=== PATIENT | female | born 1960 | race African-American/Black ===

== ENCOUNTER 2017-06-24 17:39 | Emergency (ER) | payer MEDICARE, OTHER ==
[~2017-06-24] VITALS: Ht 165.1 cm; Wt 88.5 kg
--- NOTE | 2017-06-24 17:40 | NUR ---
AAOX3, CAME TO ER C/O SUICIDAL THOUGHTS PLAN IS TO POISON HERSELF OR RUN INTO TRAFFIC. RESP IS EVEN AND UNLABORED WITH NAD NOTED. SKIN IS WARM AND DRY. SI PRECAUTION IN PLACE. ZEKE GREENE AT BS FOR EVAL.
[2017-06-24 17:59] LABS: BASOPHILS # (AUTO) 0.1 /CMM (0.0-0.2); BASOPHILS % (AUTO) 1.6 % (0.0-2.0); EOSINOPHILS # (AUTO) 0.1 /CMM (0.0-0.7); EOSINOPHILS % (AUTO) 1.8 % (0.0-6.0); HEMATOCRIT 42 % (33-45); HEMOGLOBIN 13.1 g/dL (11.5-14.8); LYMPHOCYTES # (AUTO) 2.1 /CMM (0.8-4.8); LYMPHOCYTES % (AUTO) 48.5 % (20.0-44.0); MEAN CORPUSCULAR HEMOGLOBIN 29 PG (26.0-33.0); MEAN CORPUSCULAR HGB CONC 32 g/dl (31.0-36.0); MEAN CORPUSCULAR VOLUME 91 fL (82-100); MONOCYTES # (AUTO) 0.2 /CMM (0.1-1.30); MONOCYTES % (AUTO) 3.9 % (2.0-12.0); NEUTROPHILS % (AUTO) 44.2 % (43.0-81.0); PLATELET COUNT (AUTO) 196 /CMM (150-450); RDW COEFFICIENT OF VARIATION 14.1 (11.5-15.0); RED BLOOD CELL COUNT(AUTO) 4.57 MIL/uL (4.0-5.2); WHITE BLOOD COUNT (AUTO) 4.5 K/uL (4.3-11.0)
[2017-06-24 18:09] LABS: CALCIUM, SERUM 9.3 mg/dL (8.5-10.1); CARBON DIOXIDE 30 mmol/L (21-32); CHLORIDE 102 mmol/L (98-107); CREATININE 1.6 mg/dL (0.6-1.3); GLUCOSE 142 mg/dL (74-106); POTASSIUM 3.7 mmol/L (3.5-5.1); SODIUM SERUM 139 mmol/L (136-145); UREA NITROGEN, BLOOD 22 mg/dL (7-18)
[2017-06-24 18:14] LABS: ALANINE AMINOTRANSFERASE 29 U/L (12-78); ALCOHOL, BLOOD < 3 mg/dL (0-0); ALKALINE PHOSPHATASE 67 U/L (46-116); ASPARTATE AMINOTRANSFERASE 22 U/L (15-37); BILIRUBIN,DIRECT 0.1 mg/dL (0.0-0.2); BILIRUBIN,TOTAL 0.2 mg/dL (0.2-1.0); TOTAL PROTEIN, SERUM 7.7 g/dL (6.4-8.2)
[2017-06-24 18:16] LABS: ACETAMINOPHEN < 2 ug/ml (10-30); SALICYLATE < 2.8 mg/dL (2.8-20.0)
--- NOTE | 2017-06-24 18:17 | NUR ---
URINE SAMPLE COLLECTED SENT TO LAB
[2017-06-24 18:22] LABS: APPEARANCE,URINE Clear (CLEAR); BILIRUBIN,URINE Negative (NEGATIVE); BLOOD, URINE Negative Ery/uL (NEGATIVE); COLOR,URINE Yellow (YELLOW); KETONES,URINE Trace (NEGATIVE); LEUKOCYTE ESTERASE ,URINE Small (NEGATIVE); NITRITE, URINE Negative (NEGATIVE); PH,URINE 5.5 (5.0-8.0); PROTEIN,URINE Negative (NEGATIVE); UGLUCOSE Negative (NEGATIVE); UROBILINOGEN,URINE 0.2 EU/dL (0.2)
[2017-06-24 18:33] LABS: BACTERIA,URINE None seen /HPF (None Seen); RBC,URINE 0-2 /HPF (0-2); SQUAMOUS EPITHELIAL CELL,UR Few /HPF (None Seen)
--- NOTE | 2017-06-24 19:30 | NUR ---
RECEIVED REPORT FROM CHIQUIS GRAHAM FOR [facility].
--- NOTE | 2017-06-24 19:30 | NUR ---
PT PLACED ON 5150 HOLD PER PINKY
--- NOTE | 2017-06-24 19:52 | NUR ---
PINKY AT BEDSIDE FOR EVAL.
--- NOTE | 2017-06-24 22:14 | NUR ---
CALLED [facility] FOR S TRANSPORT TO [facility]
--- NOTE | 2017-06-24 22:14 | NUR ---
ETA 1 HOUR
--- NOTE | 2017-06-24 22:59 | NUR ---
REPORT GIVEN TO CHIQUIS SUERO FROM [facility]
[2017-06-24 23:15] VITALS: BP 120/80
--- NOTE | 2017-06-24 23:19 | NUR ---
REPORT GIVEN TO MED RESPONSE FOR [facility]. PT AO4 AWARE TO TRANSFER. PT VSS. PT WITH ALL PERSONAL BELONGINGS. PT TRANSFERED TO [facility] VIA [facility]. PER MED RESPONSE TOOK OVER CARE.
== END 2017-06-24 23:22 ==
LOC: ER 17:46
DX: R45.851 Suicidal ideations (principal); R79.89 Other specified abnormal findings of blood chemistry; F20.9 Schizophrenia, unspecified; Z98.890 Other specified postprocedural states
CPT/HCPCS: 36415; 80048; 80076; 80305; 80329; 81001; 85025; 99285; A4606; G0480 ×2; 81000-TC; Z7610

== ENCOUNTER 2024-05-10 22:43 | Inpatient (IN) | payer OTHER ==
[~2024-05-10] VITALS: Ht 165.1 cm; Wt 86.2 kg
[2024-05-10] MEDS ORDERED: HALOPERIDOL LACTATE INJ 5 MG/ML VIAL ONE (23:21)
[2024-05-10] MEDS ORDERED: LORAZEPAM INJ 2 MG/ML VIAL ONE (23:21)
[2024-05-10] MEDS: LORAZEPAM INJ 2 MG/ML VIAL IM ONE (23:24)
[2024-05-10] MEDS: HALOPERIDOL LACTATE INJ 5 MG/ML VIAL IM ONE (23:24)
[2024-05-11 00:16] LABS: BASOPHILS % (AUTO) 0.3 % (0.0-2.0); HEMATOCRIT 43 % (33-45); HEMOGLOBIN 13.4 g/dL (11.5-14.8); LYMPHOCYTES # (AUTO) 1.2 K/uL (0.8-4.8); LYMPHOCYTES % (AUTO) 15.6 % (20.0-44.0); MEAN CORPUSCULAR HEMOGLOBIN 31 PG (26.0-33.0); MEAN CORPUSCULAR HGB CONC 31 g/dl (31.0-36.0); MEAN CORPUSCULAR VOLUME 98 fL (82-100); MONOCYTES # (AUTO) 0.3 K/uL (0.1-1.30); MONOCYTES % (AUTO) 4.3 % (2.0-12.0); NEUTROPHILS % (AUTO) 79.8 % (43.0-81.0); PLATELET COUNT (AUTO) 169 K/uL (150-450); RED BLOOD CELL COUNT(AUTO) 4.37 MIL/uL (4.0-5.2); RED CELL DISTRIBUTION WIDTH 14.5 % (11.5-15.0); WHITE BLOOD COUNT (AUTO) 7.6 K/uL (4.3-11.0)
[2024-05-11] MEDS ORDERED: diphenhydrAMINE HCL 50 MG/ML VIAL ONE (00:36)
[2024-05-11 00:37] LABS: CALCIUM, SERUM 9.9 mg/dL (8.5-10.1); CARBON DIOXIDE 20 mmol/L (21-32); CHLORIDE 105 mmol/L (98-107); CREATININE 1.6 mg/dL (0.6-1.3); GLUCOSE 142 mg/dL (74-106); POTASSIUM 3.5 mmol/L (3.5-5.1); SODIUM SERUM 142 mmol/L (136-145); UREA NITROGEN, BLOOD 16 mg/dL (7-18)
[2024-05-11] MEDS ORDERED: LORAZEPAM INJ 2 MG/ML VIAL ONE (00:37)
[2024-05-11 00:41] LABS: ALANINE AMINOTRANSFERASE 21 U/L (12-78); ALBUMIN 3.4 g/dL (3.4-5.0); ALCOHOL, BLOOD < 3 mg/dL (0-10); ALKALINE PHOSPHATASE 81 U/L (46-116); ASPARTATE AMINOTRANSFERASE 16 U/L (15-37); BILIRUBIN,DIRECT 0.1 mg/dL (0.0-0.2); BILIRUBIN,TOTAL 0.3 mg/dL (0.2-1.0); SALICYLATE 4.5 mg/dL (2.8-20.0); TOTAL PROTEIN, SERUM 7.4 g/dL (6.4-8.2)
[2024-05-11] MEDS: LORAZEPAM INJ 2 MG/ML VIAL IM ONE (00:42)
[2024-05-11] MEDS: diphenhydrAMINE HCL 50 MG/ML VIAL IM ONE (00:42)
[2024-05-11 00:49] LABS: ACETAMINOPHEN <10 ug/ml (10-30)
[2024-05-11 02:30] LABS: APPEARANCE,URINE CLEAR (CLEAR); BILIRUBIN,URINE 1+ (NEGATIVE); BLOOD, URINE NEGATIVE Ery/uL (NEGATIVE); COLOR,URINE YELLOW (YELLOW); KETONES,URINE TRACE mg/dL (NEGATIVE); LEUKOCYTE ESTERASE ,URINE NEGATIVE (NEGATIVE); NITRITE, URINE NEGATIVE (NEGATIVE); PROTEIN,URINE 1+ mg/dl (NEGATIVE); UGLUCOSE NEGATIVE (NEGATIVE)
[2024-05-11 02:39] LABS: AMPHETAMINE, URINE NEGATIVE (NEGATIVE); BARBITURATE, URINE NEGATIVE (NEGATIVE); BENZODIAZEPINE, URINE NEGATIVE (NEGATIVE); CANNABINOID, URINE NEGATIVE (NEGATIVE); COCCAINE, URINE NEGATIVE (NEGATIVE); OPIATE, URINE NEGATIVE (NEGATIVE); PHENCYCLIDINE SCREEN,URINE NEGATIVE (NEGATIVE)
[2024-05-11] MEDS ORDERED: OLANZAPINE 10 MG VIAL IM ONE (22:11)
[2024-05-11] MEDS: OLANZAPINE 10 MG VIAL IM ONE (22:14)
[2024-05-12] MEDS ORDERED: ATOR20TA PO (15:09)
[2024-05-12] MEDS ORDERED: PANT40TA49 PO (15:09)
[2024-05-12] MEDS ORDERED: QUET200T PO (15:09)
[2024-05-12] MEDS ORDERED: LISI10TA29 PO (15:09)
[2024-05-12] MEDS ORDERED: ACETAMINOPHEN 325 MG TABLET PO PRN (17:00)
[2024-05-12] MEDS ORDERED: LORAZEPAM 0.5 MG TABLET PO PRN (17:00)
[2024-05-12] MEDS ORDERED: MAGNESIUM HYDROXIDE 30 ML UDC PO PRN (17:00)
[2024-05-12] MEDS ORDERED: MAG HYDROX/AL HYDROX/SIMETH 30 ML UDC PO PRN (17:00)
[2024-05-12] MEDS: BLOOD SUGAR DIAGNOSTIC 1 EACH STRIP IN ONE (17:29)
[2024-05-12 20:00] VITALS: BP 125/73; TEMP 98.2; O2SAT 97
[2024-05-12 20:57] VITALS: BP 125/73; TEMP 98.2; O2SAT 97
[2024-05-12] MEDS: ZOLPIDEM TARTRATE 5 MG TABLET PO PRN (21:33)
[2024-05-12] MEDS: ATORVASTATIN 10 MG TABLET PO SCH (21:34)
[2024-05-13 07:36] LABS: ALBUMIN 2.9 g/dL (3.4-5.0); BILIRUBIN,TOTAL 0.4 mg/dL (0.2-1.0); CALCIUM, SERUM 9.8 mg/dL (8.5-10.1); CREATININE 0.9 mg/dL (0.6-1.3); POTASSIUM 3.6 mmol/L (3.5-5.1); TOTAL PROTEIN, SERUM 6.6 g/dL (6.4-8.2)
[2024-05-13 08:00] VITALS: BP 113/55; TEMP 97.4; O2SAT 96
[2024-05-13] MEDS: PANTOPRAZOLE 40 MG TABLET.DR PO SCH (08:35)
[2024-05-13] MEDS: LISINOPRIL (10MG) 10 MG TABLET PO SCH (08:38)
[2024-05-13] MEDS: risperiDONE 1 MG TABLET PO SCH (11:35)
[2024-05-13] MEDS: BENZTROPINE MESYLATE (1 MG) 1 MG TABLET PO SCH (11:35)
[2024-05-13 16:00] VITALS: BP 111/74; TEMP 97.8; O2SAT 98
[2024-05-13 20:39] VITALS: BP 139/58; TEMP 98.2; O2SAT 99
[2024-05-14 08:00] VITALS: BP 114/72; TEMP 98.1; O2SAT 98
[2024-05-14] MEDS: risperiDONE 1 MG TABLET PO SCH (13:42)
[2024-05-14] MEDS: DIVALPROEX SODIUM 250 MG TABLET.DR PO SCH (15:25)
[2024-05-14 16:00] VITALS: BP 114/74; TEMP 98.7; O2SAT 98
[2024-05-14 20:00] VITALS: BP 119/62; TEMP 98.3; O2SAT 99
[2024-05-15 08:00] VITALS: BP 118/73; TEMP 97.9; O2SAT 98
[2024-05-15 16:00] VITALS: BP 101/60; TEMP 98; O2SAT 96
[2024-05-15] MEDS: risperiDONE 1 MG TABLET PO SCH ×2 (16:28→21:10)
[2024-05-15 20:00] VITALS: BP 105/49; TEMP 97.9; O2SAT 98
[2024-05-16 08:00] VITALS: BP 133/90; TEMP 97.8; O2SAT 96
[2024-05-16 16:00] VITALS: BP 120/76; TEMP 97.8; O2SAT 100
[2024-05-16 20:00] VITALS: BP 122/78; TEMP 98.2; O2SAT 99
[2024-05-17 08:00] VITALS: BP 100/70; TEMP 97.9; O2SAT 100
[2024-05-17 16:00] VITALS: BP 118/67; TEMP 97.9; O2SAT 96
[2024-05-17 20:00] VITALS: BP 125/84; TEMP 98.2; O2SAT 95
[2024-05-18 08:00] VITALS: BP 121/80; TEMP 97.7; O2SAT 100
[2024-05-18 16:00] VITALS: BP 116/72; TEMP 98.2; O2SAT 100
[2024-05-18 20:34] VITALS: BP 120/69; TEMP 98.1; O2SAT 99
[2024-05-19 08:00] VITALS: BP 100/60; TEMP 97.9; O2SAT 100
[2024-05-19 16:00] VITALS: BP 113/72; TEMP 97.9; O2SAT 100
[2024-05-19 20:00] VITALS: BP 109/69; TEMP 97.5; O2SAT 98
[2024-05-20 08:00] VITALS: BP 117/72; TEMP 98.1; O2SAT 99
[2024-05-20] MEDS ORDERED: PALIPERIDONE PALMITATE 156 MG/ML SYRINGE IM ONE ×2 (12:00→13:00)
[2024-05-20] MEDS: PALIPERIDONE PALMITATE 156 MG/ML SYRINGE IM ONE (13:52)
[2024-05-20 16:00] VITALS: BP 100/58; TEMP 97.9; O2SAT 97
[2024-05-20 20:37] VITALS: BP 98/61; TEMP 98.7; O2SAT 100
[2024-05-20] MEDS: risperiDONE 1 MG TABLET PO SCH (21:14)
[2024-05-21 08:00] VITALS: BP 111/72; TEMP 98.6; O2SAT 100
[2024-05-21 16:00] VITALS: BP 112/72; TEMP 97.9; O2SAT 97
[2024-05-21 16:17] LABS: BASOPHILS % (AUTO) 0.5 % (0.0-2.0); EOSINOPHILS # (AUTO) 0.1 K/uL (0.0-0.7); EOSINOPHILS % (AUTO) 1.4 % (0.0-6.0); HEMATOCRIT 36 % (33-45); HEMOGLOBIN 12.4 g/dL (11.5-14.8); LYMPHOCYTES # (AUTO) 2.9 K/uL (0.8-4.8); LYMPHOCYTES % (AUTO) 57.1 % (20.0-44.0); MEAN CORPUSCULAR HEMOGLOBIN 32 PG (26.0-33.0); MEAN CORPUSCULAR HGB CONC 34 g/dl (31.0-36.0); MEAN CORPUSCULAR VOLUME 93 fL (82-100); MONOCYTES # (AUTO) 0.4 K/uL (0.1-1.30); MONOCYTES % (AUTO) 7.3 % (2.0-12.0); NEUTROPHILS # (AUTO) 1.7 K/uL (1.8-8.9); NEUTROPHILS % (AUTO) 33.7 % (43.0-81.0); PLATELET COUNT (AUTO) 169 K/uL (150-450); RED BLOOD CELL COUNT(AUTO) 3.89 MIL/uL (4.0-5.2); RED CELL DISTRIBUTION WIDTH 14.5 % (11.5-15.0); WHITE BLOOD COUNT (AUTO) 5.1 K/uL (4.3-11.0)
[2024-05-21 16:45] LABS: BILIRUBIN,TOTAL 0.2 mg/dL (0.2-1.0); CALCIUM, SERUM 8.9 mg/dL (8.5-10.1); POTASSIUM 3.9 mmol/L (3.5-5.1); TOTAL PROTEIN, SERUM 6.8 g/dL (6.4-8.2)
[2024-05-21 20:34] VITALS: BP 98/60; TEMP 97.9; O2SAT 97
[2024-05-22 06:55] LABS: BASOPHILS % (AUTO) 0.6 % (0.0-2.0); EOSINOPHILS # (AUTO) 0.1 K/uL (0.0-0.7); EOSINOPHILS % (AUTO) 2.3 % (0.0-6.0); HEMATOCRIT 35 % (33-45); HEMOGLOBIN 11.8 g/dL (11.5-14.8); LYMPHOCYTES # (AUTO) 2.3 K/uL (0.8-4.8); LYMPHOCYTES % (AUTO) 60.6 % (20.0-44.0); MEAN CORPUSCULAR HEMOGLOBIN 31 PG (26.0-33.0); MEAN CORPUSCULAR HGB CONC 34 g/dl (31.0-36.0); MEAN CORPUSCULAR VOLUME 93 fL (82-100); MONOCYTES # (AUTO) 0.3 K/uL (0.1-1.30); MONOCYTES % (AUTO) 8.2 % (2.0-12.0); NEUTROPHILS # (AUTO) 1.1 K/uL (1.8-8.9); NEUTROPHILS % (AUTO) 28.3 % (43.0-81.0); PLATELET COUNT (AUTO) 177 K/uL (150-450); RED BLOOD CELL COUNT(AUTO) 3.76 MIL/uL (4.0-5.2); RED CELL DISTRIBUTION WIDTH 14.2 % (11.5-15.0); WHITE BLOOD COUNT (AUTO) 3.8 K/uL (4.3-11.0)
[2024-05-22 07:37] LABS: ALBUMIN 2.7 g/dL (3.4-5.0); BILIRUBIN,TOTAL 0.2 mg/dL (0.2-1.0); CALCIUM, SERUM 9.3 mg/dL (8.5-10.1); POTASSIUM 4.9 mmol/L (3.5-5.1); TOTAL PROTEIN, SERUM 6.1 g/dL (6.4-8.2)
[2024-05-22 08:00] VITALS: BP 105/73; TEMP 98.7; O2SAT 98
[2024-05-22 08:12] VITALS: BP 105/73
== END 2024-05-22 09:45 | DRG 885 ==
LOC: ER 22:51 → GPS 05-12 15:05
PROVIDERS: ADMIT Psychiatry & Neurology Psychosomatic Medicine; ATTEND Nurse Practitioner Acute Care
DX: F20.9 Schizophrenia, unspecified (principal); F29 Unspecified psychosis not due to a substance or known physiological condition; R73.03 Prediabetes; F14.91 Cocaine use, unspecified, in remission; Z91.199 Patient's noncompliance with other medical treatment and regimen due to unspecified reason; Z91.81 History of falling; E78.5 Hyperlipidemia, unspecified; Z98.890 Other specified postprocedural states; Z79.899 Other long term (current) drug therapy; Z73.6 Limitation of activities due to disability; R53.1 Weakness; R27.8 Other lack of coordination; F41.9 Anxiety disorder, unspecified; F32.A Depression, unspecified; I10 Essential (primary) hypertension; K21.9 Gastro-esophageal reflux disease without esophagitis; G31.84 Mild cognitive impairment of uncertain or unknown etiology
CPT/HCPCS: 36415; 80048-TC; 80053-TC; 80061-TC; 80076-TC; 80164-TC; 82962-TC; 85025-TC; 98960; G0480; J1200; J1630; J2060; J2426; J3490

== ENCOUNTER 2024-05-24 13:45 | Inpatient (IN) | payer OTHER ==
[~2024-05-24] VITALS: Ht 165.1 cm; Wt 82.6 kg
[~2024-05-24 13:45] MED LIST: ATOR20TA PO; LISI10TA29 PO; PANT40TA49 PO; QUET200T PO
[2024-05-24] MEDS: IV NS 0.9% 1,000 ML BAG IV ONE ×2 (14:20→16:00)
[2024-05-24 14:23] LABS: BASOPHILS % (AUTO) 0.5 % (0.0-2.0); HEMATOCRIT 36 % (33-45); HEMOGLOBIN 12.1 g/dL (11.5-14.8); LYMPHOCYTES # (AUTO) 1.7 K/uL (0.8-4.8); LYMPHOCYTES % (AUTO) 42.2 % (20.0-44.0); MEAN CORPUSCULAR HEMOGLOBIN 31 PG (26.0-33.0); MEAN CORPUSCULAR HGB CONC 33 g/dl (31.0-36.0); MEAN CORPUSCULAR VOLUME 93 fL (82-100); MONOCYTES # (AUTO) 0.3 K/uL (0.1-1.30); NEUTROPHILS # (AUTO) 1.9 K/uL (1.8-8.9); NEUTROPHILS % (AUTO) 48.3 % (43.0-81.0); PLATELET COUNT (AUTO) 177 K/uL (150-450); RED BLOOD CELL COUNT(AUTO) 3.88 MIL/uL (4.0-5.2); RED CELL DISTRIBUTION WIDTH 14.7 % (11.5-15.0)
[2024-05-24 14:35] LABS: INR 0.98 (0.91-1.10); PARTIAL THROMBOPLASTIN TIME 27.2 SEC (24.3-34.3); PROTHROMBIN TIME 10.4 SECS (9.2-11.1)
[2024-05-24 15:07] LABS: CALCIUM, SERUM 8.3 mg/dL (8.5-10.1); CARBON DIOXIDE 35 mmol/L (21-32); CHLORIDE 104 mmol/L (98-107); GLUCOSE 98 mg/dL (74-106); LACTIC ACID 1.7 mmol/L (0.4-2.0); POTASSIUM 3.7 mmol/L (3.5-5.1); SODIUM SERUM 140 mmol/L (136-145); UREA NITROGEN, BLOOD 10 mg/dL (7-18)
[2024-05-24 16:02] LABS: ACETAMINOPHEN 0 ug/ml (10-30); ALCOHOL, BLOOD < 3 mg/dL (0-10); SALICYLATE < 0.2 mg/dL (2.8-20.0)
[2024-05-24 16:29] LABS: ALANINE AMINOTRANSFERASE 14 U/L (12-78); ALKALINE PHOSPHATASE 66 U/L (46-116); ASPARTATE AMINOTRANSFERASE 11 U/L (15-37); BILIRUBIN,DIRECT 0.1 mg/dL (0.0-0.2); BILIRUBIN,TOTAL 0.2 mg/dL (0.2-1.0)
[2024-05-24 16:30] LABS: TOTAL PROTEIN, SERUM 6.6 g/dL (6.4-8.2)
[2024-05-24 17:59] LABS: APPEARANCE,URINE CLEAR (CLEAR); BILIRUBIN,URINE NEGATIVE (NEGATIVE); BLOOD, URINE NEGATIVE Ery/uL (NEGATIVE); COLOR,URINE YELLOW (YELLOW); KETONES,URINE NEGATIVE (NEGATIVE); LEUKOCYTE ESTERASE ,URINE NEGATIVE (NEGATIVE); NITRITE, URINE NEGATIVE (NEGATIVE); PROTEIN,URINE NEGATIVE (NEGATIVE); UGLUCOSE NEGATIVE (NEGATIVE); UROBILINOGEN,URINE 0.2 EU/dL (0.2)
[2024-05-24 18:28] LABS: AMPHETAMINE, URINE NEGATIVE (NEGATIVE); BARBITURATE, URINE NEGATIVE (NEGATIVE); BENZODIAZEPINE, URINE NEGATIVE (NEGATIVE); CANNABINOID, URINE NEGATIVE (NEGATIVE); COCCAINE, URINE NEGATIVE (NEGATIVE); OPIATE, URINE NEGATIVE (NEGATIVE); PHENCYCLIDINE SCREEN,URINE NEGATIVE (NEGATIVE)
[2024-05-24] MEDS ORDERED: RISP1TAB7 PO (18:48)
[2024-05-24] MEDS ORDERED: DIVA-76 PO (18:48)
[2024-05-24] MEDS ORDERED: BENZ1TAB7 PO (18:48)
[2024-05-24] MEDS ORDERED: MAGNESIUM HYDROXIDE 30 ML UDC PO PRN (20:00)
[2024-05-24] MEDS ORDERED: Z GUARD REMEDY 4 OZ OINT TP PRN (20:00)
[2024-05-24] MEDS ORDERED: ONDANSETRON HCL/PF 4 MG/2 ML VIAL IVP PRN (20:00)
[2024-05-24] MEDS ORDERED: MAG HYDROX/AL HYDROX/SIMETH 30 ML UDC PO PRN (20:00)
[2024-05-24] MEDS ORDERED: ACETAMINOPHEN 325 MG TABLET PO PRN (20:00)
[2024-05-24 22:09] VITALS: BP 87/60; TEMP 97.3; O2SAT 99
[2024-05-24] MEDS: IV NS 0.9% 1,000 ML IV SCH ×2 (22:44→23:28)
[2024-05-24] MEDS: IV NS 0.9% 500 ML IV ONE (23:34)
[2024-05-25] VITALS: BP 101/48; TEMP 97.7; O2SAT 97
[2024-05-25 04:00] VITALS: BP 105/71; TEMP 97.7; O2SAT 99
[2024-05-25 07:53] LABS: BASOPHILS % (AUTO) 0.8 % (0.0-2.0); EOSINOPHILS # (AUTO) 0.1 K/uL (0.0-0.7); HEMATOCRIT 35 % (33-45); HEMOGLOBIN 11.7 g/dL (11.5-14.8); LYMPHOCYTES # (AUTO) 2.2 K/uL (0.8-4.8); LYMPHOCYTES % (AUTO) 50.5 % (20.0-44.0); MEAN CORPUSCULAR HEMOGLOBIN 31 PG (26.0-33.0); MEAN CORPUSCULAR HGB CONC 33 g/dl (31.0-36.0); MEAN CORPUSCULAR VOLUME 95 fL (82-100); MONOCYTES # (AUTO) 0.3 K/uL (0.1-1.30); MONOCYTES % (AUTO) 7.1 % (2.0-12.0); NEUTROPHILS # (AUTO) 1.8 K/uL (1.8-8.9); NEUTROPHILS % (AUTO) 39.6 % (43.0-81.0); PLATELET COUNT (AUTO) 163 K/uL (150-450); RED BLOOD CELL COUNT(AUTO) 3.71 MIL/uL (4.0-5.2); RED CELL DISTRIBUTION WIDTH 14.4 % (11.5-15.0); WHITE BLOOD COUNT (AUTO) 4.4 K/uL (4.3-11.0)
[2024-05-25 07:59] LABS: CALCIUM, SERUM 7.7 mg/dL (8.5-10.1); CREATININE 0.8 mg/dL (0.6-1.3); PHOSPHORUS 3.4 mg/dL (2.5-4.9); POTASSIUM 3.7 mmol/L (3.5-5.1)
[2024-05-25 08:09] VITALS: BP 97/54; TEMP 98.6; O2SAT 97
[2024-05-25] MEDS: IV NS 0.9% 1,000 ML IV PRN (15:02)
[2024-05-25 15:55] VITALS: BP 117/72; TEMP 97.8; O2SAT 97
[2024-05-25 20:00] VITALS: BP 133/66; TEMP 98.2; O2SAT 99
[2024-05-26 08:10] VITALS: BP 148/83; TEMP 98.4; O2SAT 97
[2024-05-26 08:23] VITALS: BP 135/79; TEMP 97.9; O2SAT 98
[2024-05-26 16:01] VITALS: BP 122/67; TEMP 98.4; O2SAT 96
[2024-05-26 20:00] VITALS: BP 148/83; TEMP 98.4; O2SAT 97
[2024-05-27 08:00] VITALS: BP_SYST 124; BP_SYST 126; BP_DIAS 61; BP_DIAS 64; TEMP 97.7; TEMP 98.6; O2SAT 97
== END 2024-05-28 16:15 | DRG 93 ==
LOC: ER 13:51 → TELE 21:18 → MED 05-25 10:15
PROVIDERS: ATTEND Internal Medicine
DX: G92.8 Other toxic encephalopathy (principal); T43.505S Adverse effect of unspecified antipsychotics and neuroleptics, sequela; I95.9 Hypotension, unspecified; Z73.6 Limitation of activities due to disability; Z20.822 Contact with and (suspected) exposure to COVID-19; R73.03 Prediabetes; F25.0 Schizoaffective disorder, bipolar type; S00.03XA Contusion of scalp, initial encounter; X58.XXXA Exposure to other specified factors, initial encounter; Y93.9 Activity, unspecified; Y92.89 Other specified places as the place of occurrence of the external cause
CPT/HCPCS: 36415; 70450-TC; 71045-TC; 80048-TC; 80076-TC; 83605-TC; 83735-TC; 84100-TC; 84443-TC; 84484-TC; 85025-TC; 85730-TC; 87040-TC; 87081-TC; 87086-TC; 92526; 92611-TC; 97110-TC; 97112-TC; 97116-TC; 97530-TC; A4223; G0378; G0480; J7030; J7040

== ENCOUNTER 2024-05-28 15:50 | Inpatient (IN) | payer MEDICARE, OTHER ==
[~2024-05-28] VITALS: Ht 165.1 cm; Wt 82.6 kg
[~2024-05-28 15:50] MED LIST changes: -ATOR20TA PO; +BENZ1TAB7 PO; +DIVA-76 PO; -LISI10TA29 PO; -PANT40TA49 PO; -QUET200T PO; +RISP1TAB7 PO
[2024-05-28] MEDS ORDERED: ACETAMINOPHEN 325 MG TABLET PO PRN (18:30)
[2024-05-28] MEDS ORDERED: MAGNESIUM HYDROXIDE 30 ML UDC PO PRN (18:30)
[2024-05-28] MEDS ORDERED: MAG HYDROX/AL HYDROX/SIMETH 30 ML UDC PO PRN (18:30)
[2024-05-28] MEDS ORDERED: TEMAZEPAM 7.5 MG CAPSULE PO PRN (18:30)
[2024-05-28] MEDS: BLOOD SUGAR DIAGNOSTIC 1 EACH STRIP IN ONE (18:41)
[2024-05-28] MEDS ORDERED: risperiDONE 1 MG TABLET PO SCH (21:00)
[2024-05-28] MEDS: BENZTROPINE MESYLATE (1 MG) 1 MG TABLET PO SCH (21:00)
[2024-05-29 06:20] VITALS: BP 118/67; TEMP 98; O2SAT 98
[2024-05-29 08:00] VITALS: BP 119/62; TEMP 98.1; O2SAT 95
[2024-05-29] MEDS ORDERED: DIVALPROEX SODIUM 250 MG TABLET.DR PO SCH (09:00)
[2024-05-29] MEDS ORDERED: PALIPERIDONE PALMITATE 117 MG/0.75 ML SYRINGE IM ONE (11:30)
[2024-05-29] MEDS: DIVALPROEX SODIUM 500 MG TABLET.DR PO SCH (11:44)
[2024-05-29] MEDS ORDERED: INVEGA IM ONE (13:00)
[2024-05-29 15:16] LABS: BASOPHILS % (AUTO) 0.3 % (0.0-2.0); EOSINOPHILS # (AUTO) 0.1 K/uL (0.0-0.7); HEMATOCRIT 38 % (33-45); HEMOGLOBIN 12.6 g/dL (11.5-14.8); LYMPHOCYTES % (AUTO) 49.6 % (20.0-44.0); MEAN CORPUSCULAR HEMOGLOBIN 31 PG (26.0-33.0); MEAN CORPUSCULAR HGB CONC 33 g/dl (31.0-36.0); MEAN CORPUSCULAR VOLUME 93 fL (82-100); MONOCYTES # (AUTO) 0.4 K/uL (0.1-1.30); MONOCYTES % (AUTO) 6.8 % (2.0-12.0); NEUTROPHILS # (AUTO) 2.6 K/uL (1.8-8.9); NEUTROPHILS % (AUTO) 42.3 % (43.0-81.0); PLATELET COUNT (AUTO) 218 K/uL (150-450); RED BLOOD CELL COUNT(AUTO) 4.11 MIL/uL (4.0-5.2); RED CELL DISTRIBUTION WIDTH 14.6 % (11.5-15.0); WHITE BLOOD COUNT (AUTO) 6.1 K/uL (4.3-11.0)
[2024-05-29 15:34] LABS: CREATININE 1.1 mg/dL (0.6-1.3)
[2024-05-29 15:39] LABS: ALBUMIN 2.8 g/dL (3.4-5.0); BILIRUBIN,TOTAL 0.2 mg/dL (0.2-1.0); CREATININE 1.1 mg/dL (0.6-1.3); POTASSIUM 3.8 mmol/L (3.5-5.1); TOTAL PROTEIN, SERUM 6.7 g/dL (6.4-8.2)
[2024-05-29 15:41] LABS: CHOLESTEROL 142 mg/dL (<200); HDL CHOLESTEROL 87 mg/dL (40-60); LDL 37 mg/dL (0-99); TRIGLYCERIDES 47 mg/dL (30-150)
[2024-05-29 16:00] VITALS: BP 108/65; TEMP 97.8; O2SAT 99
[2024-05-29 20:00] VITALS: BP 92/54; TEMP 99; O2SAT 97
[2024-05-29] MEDS: risperiDONE 1 MG TABLET PO SCH (21:25)
[2024-05-30 08:00] VITALS: BP 115/84; TEMP 98.1; O2SAT 98
[2024-05-30 16:00] VITALS: BP 100/72; TEMP 98.5; O2SAT 96
[2024-05-30] MEDS: PALIPERIDONE PALMITATE 117 MG/0.75 ML SYRINGE IM ONE (16:59)
[2024-05-30 21:00] VITALS: BP 120/65; TEMP 98.2; O2SAT 98
[2024-05-31 08:00] VITALS: BP 105/59; TEMP 98; O2SAT 97
[2024-05-31 16:00] VITALS: BP 107/55; TEMP 98.2; O2SAT 98
[2024-05-31 20:00] VITALS: BP 116/82; TEMP 98.3; O2SAT 97
[2024-06-01 08:00] VITALS: BP 128/93; TEMP 98.6; O2SAT 99
[2024-06-01 16:00] VITALS: BP 124/64; TEMP 98.2; O2SAT 97
[2024-06-01 20:32] VITALS: BP 96/58; TEMP 97.9; O2SAT 98
[2024-06-02 08:00] VITALS: BP 108/72; TEMP 98.2; O2SAT 100
[2024-06-02] MEDS: LORAZEPAM 0.5 MG TABLET PO PRN (14:36)
== END 2024-06-02 15:40 | DRG 885 ==
LOC: GPSOV 15:50 → GPS 05-29 05:26
PROVIDERS: ADMIT Psychiatry & Neurology Psychosomatic Medicine; ATTEND Nurse Practitioner Acute Care
DX: F25.0 Schizoaffective disorder, bipolar type (principal); F29 Unspecified psychosis not due to a substance or known physiological condition; Z88.5 Allergy status to narcotic agent; Z79.899 Other long term (current) drug therapy; F14.91 Cocaine use, unspecified, in remission; E78.5 Hyperlipidemia, unspecified; I10 Essential (primary) hypertension; K21.9 Gastro-esophageal reflux disease without esophagitis; Z68.30 Body mass index [BMI] 30.0-30.9, adult; E66.9 Obesity, unspecified; Z73.6 Limitation of activities due to disability; R53.1 Weakness; R27.8 Other lack of coordination; Z91.81 History of falling; F41.9 Anxiety disorder, unspecified; G31.84 Mild cognitive impairment of uncertain or unknown etiology; F32.A Depression, unspecified
CPT/HCPCS: 36415; 80053-TC; 80061-TC; 82565-TC; 83735-TC; 85025-TC; J2426

== ENCOUNTER 2025-06-23 18:55 | Inpatient (IN) | payer MEDICARE, OTHER ==
[~2025-06-23] VITALS: Ht 165.1 cm; Wt 77.1 kg
[2025-06-23 19:29] LABS: PLATELET COUNT (AUTO) 196 K/uL (150-450); RED BLOOD CELL COUNT(AUTO) 4.05 MIL/uL (4.0-5.2); RED CELL DISTRIBUTION WIDTH 14.3 % (11.5-15.0); WHITE BLOOD COUNT (AUTO) 4.6 K/uL (4.3-11.0)
[2025-06-23 19:43] LABS: CALCIUM, SERUM 8.6 mg/dL (8.5-10.1); CREATININE 1.4 mg/dL (0.6-1.3); SODIUM SERUM 140 mmol/L (136-145); UREA NITROGEN, BLOOD 23 mg/dL (7-18)
[2025-06-23 19:49] LABS: APPEARANCE,URINE CLEAR (CLEAR); BLOOD, URINE TRACE-INTA Ery/uL (NEGATIVE); LEUKOCYTE ESTERASE ,URINE NEGATIVE (NEGATIVE); NITRITE, URINE NEGATIVE (NEGATIVE); UGLUCOSE NEGATIVE (NEGATIVE)
[2025-06-23 19:50] LABS: ALCOHOL, BLOOD < 3 mg/dL (0-10); ASPARTATE AMINOTRANSFERASE 25 U/L (15-37); TOTAL PROTEIN, SERUM 6.5 g/dL (6.4-8.2)
[2025-06-23 19:55] LABS: ADD URINE CULTURE NO
[2025-06-23 20:04] LABS: AMPHETAMINE, URINE NEGATIVE (NEGATIVE); BARBITURATE, URINE NEGATIVE (NEGATIVE); BENZODIAZEPINE, URINE NEGATIVE (NEGATIVE); CANNABINOID, URINE NEGATIVE (NEGATIVE); COCCAINE, URINE NEGATIVE (NEGATIVE); OPIATE, URINE NEGATIVE (NEGATIVE)
[2025-06-23] MEDS ORDERED: LORAZEPAM 1 MG TABLET PO PRN (22:30)
[2025-06-23] MEDS ORDERED: ZOLPIDEM TARTRATE 5 MG TABLET PO PRN ×2 (22:30)
[2025-06-23] MEDS ORDERED: MAG HYDROX/AL HYDROX/SIMETH 30 ML UDC PO PRN (22:30)
[2025-06-23] MEDS ORDERED: LORAZEPAM 0.5 MG TABLET PO PRN (22:30)
[2025-06-23] MEDS ORDERED: MAGNESIUM HYDROXIDE 30 ML UDC PO PRN (22:30)
[2025-06-23] MEDS: BLOOD SUGAR DIAGNOSTIC 1 EACH STRIP IN ONE (23:52)
[2025-06-24 08:00] VITALS: BP 108/62; TEMP 98.6; O2SAT 99
[2025-06-24 08:01] LABS: ASPARTATE AMINOTRANSFERASE 23.0 U/L (15-37); CALCIUM, SERUM 8.7 mg/dL (8.5-10.1); CREATININE 1.1 mg/dL (0.6-1.3); SODIUM SERUM 140.0 mmol/L (136-145); TOTAL PROTEIN, SERUM 6.2 g/dL (6.4-8.2); UREA NITROGEN, BLOOD 23.0 mg/dL (7-18)
[2025-06-24 08:10] LABS: LDL 22 mg/dL (0-99)
[2025-06-24] MEDS: PANTOPRAZOLE 40 MG TABLET.DR PO SCH (08:24)
[2025-06-24] MEDS: DIVALPROEX SODIUM 250 MG TABLET.DR PO SCH (11:32)
[2025-06-24 16:00] VITALS: BP 115/78; TEMP 97.7; O2SAT 98
[2025-06-24] MEDS: ACETAMINOPHEN 325 MG TABLET PO PRN (16:36)
[2025-06-24 20:19] VITALS: BP 123/82; TEMP 98.1; O2SAT 96
[2025-06-24 23:15] LABS: CREATININE 1.5 mg/dL (0.6-1.3)
[2025-06-25 08:00] VITALS: BP_SYST 100; BP_SYST 122; BP_DIAS 70; BP_DIAS 77; TEMP 97.9; TEMP 98.2; O2SAT 100; O2SAT 95
[2025-06-25 20:00] VITALS: BP 119/85; TEMP 98.2; O2SAT 99
[2025-06-26 08:00] VITALS: BP 113/59; TEMP 97.9; O2SAT 100
[2025-06-26 16:06] VITALS: BP 105/62; TEMP 98; O2SAT 99
[2025-06-26 20:00] VITALS: BP 130/88; TEMP 98; O2SAT 98
[2025-06-26 21:17] VITALS: BP 130/88; TEMP 98; O2SAT 98
[2025-06-27 08:18] VITALS: BP 97/62; TEMP 97.7; O2SAT 96
[2025-06-27 16:06] VITALS: BP 97/59; TEMP 97.8; O2SAT 98
[2025-06-27 20:37] VITALS: BP 120/68; TEMP 97.7; O2SAT 98
[2025-06-27 21:07] VITALS: BP 120/68; TEMP 97.7; O2SAT 98
[2025-06-28 08:00] VITALS: BP 127/69; TEMP 98; O2SAT 98
[2025-06-28 08:00] LABS: ASPARTATE AMINOTRANSFERASE 15.0 U/L (15-37); CALCIUM, SERUM 9.1 mg/dL (8.5-10.1); CREATININE 1.3 mg/dL (0.6-1.3); PHOSPHORUS 4.4 mg/dL (2.5-4.9); SODIUM SERUM 143.0 mmol/L (136-145); TOTAL PROTEIN, SERUM 6.4 g/dL (6.4-8.2); UREA NITROGEN, BLOOD 17.0 mg/dL (7-18)
[2025-06-28 08:06] LABS: PLATELET COUNT (AUTO) 197 K/uL (150-450); RED BLOOD CELL COUNT(AUTO) 3.99 MIL/uL (4.0-5.2); RED CELL DISTRIBUTION WIDTH 14.2 % (11.5-15.0); WHITE BLOOD COUNT (AUTO) 3.1 K/uL (4.3-11.0)
[2025-06-28 16:00] VITALS: BP 134/72; TEMP 98.5; O2SAT 99
[2025-06-28 20:47] VITALS: BP 121/61; TEMP 97.7; O2SAT 98
[2025-06-29 08:00] VITALS: BP 117/57; TEMP 98.6; O2SAT 97
[2025-06-29] MEDS: DIVALPROEX SODIUM 250 MG TABLET.DR PO SCH (13:13)
[2025-06-29 16:00] VITALS: BP 145/67; TEMP 98.8; O2SAT 99
[2025-06-29 20:02] VITALS: BP 102/62; TEMP 98.6; O2SAT 100
[2025-06-30 08:00] VITALS: BP 130/76; TEMP 97.7; O2SAT 100
[2025-06-30] MEDS: PALIPERIDONE PALMITATE 234 MG/1.5 ML SYRINGE IM SCH (08:46)
[2025-06-30 16:05] VITALS: BP 125/70; TEMP 97.9; O2SAT 97
[2025-06-30 20:24] VITALS: BP 123/69; TEMP 97.8; O2SAT 99
[2025-07-01 08:00] VITALS: BP 98/71; TEMP 97.1; O2SAT 98
[2025-07-01 16:00] VITALS: BP 118/84; TEMP 98.6; O2SAT 99
[2025-07-01 19:54] VITALS: BP 100/55; TEMP 97.5; O2SAT 98
[2025-07-02 08:00] VITALS: BP 131/59; TEMP 98.2; O2SAT 97
[2025-07-02 16:00] VITALS: BP 104/69; TEMP 98.6; O2SAT 98
[2025-07-02 20:00] VITALS: BP 128/70; TEMP 97.9
[2025-07-02 20:30] VITALS: BP 128/70; TEMP 98; O2SAT 98
== END 2025-07-03 15:14 | disposition home or self-care (01) | DRG 885 ==
LOC: ER 18:56 → GPS 21:06
PROVIDERS: ADMIT Psychiatry & Neurology Psychiatry; ATTEND Registered Nurse Psychiatric/Mental Health
DX: F29 Unspecified psychosis not due to a substance or known physiological condition (principal); N17.0 Acute kidney failure with tubular necrosis; E44.1 Mild protein-calorie malnutrition; Q60.0 Renal agenesis, unilateral; N18.2 Chronic kidney disease, stage 2 (mild); E88.09 Other disorders of plasma-protein metabolism, not elsewhere classified; F41.9 Anxiety disorder, unspecified; Z79.899 Other long term (current) drug therapy; Z87.891 Personal history of nicotine dependence; Z20.822 Contact with and (suspected) exposure to COVID-19; Z73.6 Limitation of activities due to disability; Z68.28 Body mass index [BMI] 28.0-28.9, adult; F39 Unspecified mood [affective] disorder; R73.9 Hyperglycemia, unspecified; F25.0 Schizoaffective disorder, bipolar type
CPT/HCPCS: 36415; 80048-TC; 80053-TC; 80061-TC; 80076-TC; 80164-TC; 81001; 82565-TC; 82962-TC; 83735-TC; 84100-TC; 85025-TC; 87081-TC; G0480; J2426